=== PATIENT | female | born 1985 | race Caucasian/White ===

== ENCOUNTER 2020-10-29 08:45 | Outpatient (CLI) | payer OTHER | END 2020-10-29 08:56 | disposition home or self-care (01) | LOC: RX STUDY 08:45 | PROVIDERS: ATTEND Surgery | DX: R10.13 Epigastric pain (principal); K21.9 Gastro-esophageal reflux disease without esophagitis ==

== ENCOUNTER 2020-12-26 05:50 | Day surgery (SDC) | payer OTHER | END 2020-12-26 12:30 | disposition home or self-care (01) | LOC: AMB-ENDOS 05:50 | PROVIDERS: ATTEND Surgery | DX: D13.1 Benign neoplasm of stomach (principal); K44.9 Diaphragmatic hernia without obstruction or gangrene; Z20.822 Contact with and (suspected) exposure to COVID-19 ==

== ENCOUNTER 2025-01-25 10:14 | Outpatient (CLI) | payer OTHER | END 2025-01-25 10:19 | disposition home or self-care (01) | LOC: SONOGRAMA 10:14 | PROVIDERS: ATTEND Pathology Anatomic Pathology & Clinical Pathology | DX: C73 Malignant neoplasm of thyroid gland (principal); E04.1 Nontoxic single thyroid nodule ==